=== PATIENT | female | born 1945 | race Caucasian/White ===

== ENCOUNTER → 2017-01-16 | Outpatient (CLI) | payer MEDICARE ==
[~2017-01-16] MED LIST: ASPI325T PO; BACL10TA PO; COLA100C3 PO; ESTR.625 PO; GABA600T PO; IBUP200C PO; MAXZ PO; MAXZTAB PO; PERC10TA27 PO; PRIN20TA2 PO; TYLE325T PO; ZANA4CAP PO
[2017-01-16 14:24] LABS: AUTOMATED NEUTROPHIL # 5.3 TH/MM3 (1.8-7.7); BASOPHIL # 0.1 TH/MM3 (0-0.2); BASOPHIL % 1.2 % (0.0-2.0); EOSINOPHIL # 0.1 TH/MM3 (0-0.4); EOSINOPHIL % 0.9 % (0.0-4.0); HEMATOCRIT 31.9 % (35.0-46.0); HEMO FLAGS DIFF FINAL; LYMPH % 22.1 % (9.0-44.0); LYMPHOCYTE # 1.7 TH/MM3 (1.0-4.8); MEAN CELL VOLUME 95.3 FL (80.0-100.0); MEAN CORPUSCULAR HEMOGLOBIN 31.9 PG (27.0-34.0); MEAN CORPUSCULAR HGB CONC 33.4 % (32.0-36.0); MONO % 7.6 % (0.0-8.0); NEUT % 68.2 % (16.0-70.0); PLATELET COUNT 379 TH/MM3 (150-450); RED BLOOD COUNT 3.34 MIL/MM3 (4.00-5.30); RED CELL DISTRIBUTION WIDTH 12.7 % (11.6-17.2); WHITE BLOOD COUNT 7.7 TH/MM3 (4.0-11.0)
[2017-01-16 14:32] LABS: BACTERIA, URINE MOD /hpf; BLOOD, URINE NEG (NEG); COMMENT (UR) CULTURE INDICATED; CULTURE IF INDICATED CULTURE INDICATED; GLUCOSE,URINE NEG (NEG); HYALINE CAST, URINE 2 /lpf (RARE); KETONE, URINE NEG (NEG); MUCUS URINE MANY /lpf (OCC); NITRITE,URINE NEG (NEG); PH, URINE 5.5 (5.0-8.5); SQUAMOUS EPITHELIAL CELL URINE 38 /hpf (0-5); URINE COLOR YELLOW (YELLW/STRAW)
--- NOTE | 2017-01-17 06:11 | EKG ---
Date Performed: 01/16/2017 Time Performed: 13:19:00 PTAGE: 71 years EKG: Sinus rhythm WITH OCCASIONAL VENTRICULAR PREMATURE COMPLEXES INCOMPLETE RIGHT BUNDLE BRANCH BLOCK BORDERLINE ECG Compared to prior tracing no significant change DOCTOR: Erickson Alfaro Interpretating Date/Time 01/17/2017 06:10:01
== END ==
LOC: CPRE 12:47
PROVIDERS: ATTEND Pain Medicine Interventional Pain Medicine
DX: Z01.810 Encounter for preprocedural cardiovascular examination (principal); Z01.812 Encounter for preprocedural laboratory examination; M54.5 Low back pain; M54.16 Radiculopathy, lumbar region; R94.31 Abnormal electrocardiogram [ECG] [EKG]; R82.90 Unspecified abnormal findings in urine
CPT/HCPCS: 36415; 81001; 84132; 85025; 87086; 93005

== ENCOUNTER → 2017-01-22 | Day surgery (SDC) | payer MEDICARE ==
[~2017-01-22] VITALS: Ht 170.2 cm; Wt 79.5 kg
[~2017-01-22] MED LIST changes: +*MEPERIDINE 25 MG INJ VIAL PERIprocedural Use ONLY ONE; -BACL10TA PO; +BUPIVACAINE/EPINEPHRINE 0.5% PF 30 ML VIAL ONE; +LACTATED RINGER'S 1000 ML INJ 1,000 ML ONE; +LIDOCAINE 1%/EPINEPHrine 1:100,000 SOLN 30 ML VIAL ONE; -MAXZ PO; +MEPERIDINE HCL 50 MG/ML VIAL ONE; +PROPOFOL 200 MG/20 ML AMP IV ONE; +SODIUM CHLORIDE 0.9% 20 ML VIAL ONE; +SODIUM CHLORIDE 0.9% INJ 100 ML ONE; +ceFAZolin INJ 1,000 MG VIAL ONE
[2017-01-22 10:17] VITALS: BP 194/97; PULSE 86; RESP 20; TEMP 98.2; O2SAT 98
[2017-01-22 12:00] VITALS: TEMP 97.3
[2017-01-22 12:50] VITALS: BP 159/86; PULSE 78; RESP 16; O2SAT 99
--- NOTE | 2017-01-23 21:27 | M6 ---
cc: JOAN SINGH M.D. DATE: 01/22/2017 DATE OF : 1945 PROCEDURE Implantation of [employer] Octrode for spinal cord stimulation. PREPROCEDURE DIAGNOSIS Status post lumbar fusion, failed back syndrome, lumbar radiculopathy and intractable pain. POSTPROCEDURE DIAGNOSIS Status post lumbar fusion, failed back syndrome, lumbar radiculopathy and intractable pain. PROCEDURE NOTE: IV was started in the holding area. The patient was given IV antibiotics, taken to the operating room, placed in the prone position. All pressure points were checked and padded. She was sedated and monitored by anesthesia. Her back was prepped with ChloraPrep and draped with sterile drapes. Fluoroscopy was used to visualize the T12, L1 interlaminar space. The skin was infiltrated with 0.5% Marcaine containing epinephrine. Then a modified Tuohy needle from the [employer] kit was advanced using [id number] technique and fluoroscopic guidance into the epidural space at T12-L1. Then a Medtronics Octrode was advanced into the epidural space until the cephalad tip of the Octrode was at the cephalad border of T8 and the caudal electrodes were at the caudal border of T9, and the lead was on the midline. Then the patient was awakened and stimulation took place at multiple electrode combinations. However, the patient was not feeling the stimulation in the areas of her pain which included the bilateral buttocks, low back and bilateral lower extremity. At this point the lead was removed. The Tuohy needle was removed and the procedure was abandoned. A sterile bandage was placed over the puncture site. The patient was taken to the Recovery Room with stable vital signs, neurologically intact. WMD DA Tadeo/RUDY /11:53 AM /9:23 PM
== END | disposition home or self-care (01) ==
LOC: PHSDC 09:07
PROVIDERS: ATTEND Pain Medicine Interventional Pain Medicine
DX: M54.16 Radiculopathy, lumbar region (principal); G62.9 Polyneuropathy, unspecified; M96.1 Postlaminectomy syndrome, not elsewhere classified; I10 Essential (primary) hypertension; K21.9 Gastro-esophageal reflux disease without esophagitis; Z98.1 Arthrodesis status
CPT/HCPCS: 63650; 76000; C1778; J0690; J2175; J7120

== ENCOUNTER → 2017-02-08 | Day surgery (SDC) | payer MEDICARE ==
[~2017-02-08] MED LIST changes: -*MEPERIDINE 25 MG INJ VIAL PERIprocedural Use ONLY ONE; -BUPIVACAINE/EPINEPHRINE 0.5% PF 30 ML VIAL ONE; +LACTATED RINGER'S 1,000 ML BAG IV ONE; -LACTATED RINGER'S 1000 ML INJ 1,000 ML ONE; -LIDOCAINE 1%/EPINEPHrine 1:100,000 SOLN 30 ML VIAL ONE; +LIDOCAINE HCL 1% 50 ML VIAL ONE; +MIDAZOLAM HCL 2 MG/2 ML VIAL ONE; -SODIUM CHLORIDE 0.9% 20 ML VIAL ONE; -SODIUM CHLORIDE 0.9% INJ 100 ML ONE; +TRIAMCINOLONE ACETONIDE 40 MG/ML VIAL ONE; -ceFAZolin INJ 1,000 MG VIAL ONE
--- NOTE | 2017-02-08 12:41 | TN ---
cc: ARNOLD BUSH M.D. DATE OF OPERATION 02/08/2017 PREOPERATIVE DIAGNOSIS Right painful total knee arthroplasty, knee stiffness. POSTOPERATIVE DIAGNOSIS Right painful total knee arthroplasty, knee stiffness. PROCEDURE Right knee manipulation, fluoroscopic guidance of needle, aspiration right knee under anesthesia. SURGEON Dulce Bush MD ASSESSMENT Staff SPECIMEN 1. Synovial fluid program stain aerobic, anaerobic culture and sensitivity. 2. Synovial fluid right knee, fungal smear and culture. ESTIMATED BLOOD LOSS None COMPLICATIONS None ANESTHESIA TIVA DRAINS None CONDITION Stable PLAN OF ACTIVITY As per orders. PROCEDURE The patient was brought into the operating room and had satisfactory TIVA anesthesia by Dr. Jackson of the Department of Anesthesia. The right lower extremity was prepped and draped in the usual sterile manner. Under fluoroscopic guidance, an 18 gauge spinal needle was introduced into the right knee joint. It aspirated of approximately 2-3 cc of clearish blood-tinged synovial type fluid. This was sent for two separate specimens. The first specimen was sent for Gram stain aerobic, anaerobic culture and sensitivity. The second specimen was sent for fungal smear and culture. A Band-Aid placed over the aspiration site. Manipulation was made of the knee under anesthesia. Flexion was to 115 degrees of flexion. The patient tolerated the procedure well and arrived in the Recovery Room in stable and satisfactory condition. X-RAYS One knee one view AP shows status post right knee manipulation, status post right total knee arthroplasty. No obvious fracture dislocation or subluxation. MD BRADFORD Rodriguez/MIREYA /12:10 PM /12:34 PM
== END | disposition home or self-care (01) ==
LOC: ESDC 09:24
PROVIDERS: ATTEND Orthopaedic Surgery Orthopaedic Surgery of the Spine
DX: M24.661 Ankylosis, right knee (principal)
CPT/HCPCS: 01380; 27570; 73560; 76000; 87070; 87102; 87205; 87206; J2175; J2250; J3010; J7120; J3301

== ENCOUNTER 2017-04-18 10:26 | Inpatient (IN) | payer MEDICARE ==
[~2017-04-18] VITALS: Ht 170.2 cm; Wt 78.0 kg
[~2017-04-18 10:26] MED LIST changes: -AMLO5 PO; -ASPI325T PO; -BEDSIDE COMMODE1 MI1; -CHOL1CAP8 PO; -COLA100C3 PO; -CPMMACHINE; -DOCU100C PO; -LISI40TA PO; -MULT1TAB46 PO; -OXYC-259 PO; -PRIN20TA2 PO; -TYLE325T PO; -WALKER WHEELS/F1 MIS
[2017-04-18] MEDS ORDERED: AMLO5 PO (10:56)
[2017-04-18] MEDS ORDERED: LISI40TA PO (10:56)
[2017-04-18] MEDS ORDERED: OXYC-259 PO (10:58)
[2017-04-18] MEDS ORDERED: DOCU100C PO (10:59)
[2017-04-18] MEDS ORDERED: MULT1TAB46 PO (11:02)
[2017-04-18] MEDS ORDERED: CHOL1CAP8 PO (11:02)
[2017-06-04] MEDS ORDERED: BUPIVACAINE LIPOSOME PF 1.3% 20 ML VIAL ONE (09:24)
[2017-06-04] MEDS ORDERED: LACTATED RINGER'S 1000 ML IV PRN (11:15)
[2017-06-04] MEDS ORDERED: SODIUM CHLORID 0.9% 500 ML IV PRN (11:15)
[2017-06-04] MEDS ORDERED: INSULIN HUMAN REGULAR 1,000 UNITS/10 ML VIAL SQ PRN (11:15)
[2017-06-04] MEDS ORDERED: POVIDONE IODINE 5% (ANTISEPSIS KIT) 4 APPLICATIONS EACH NARE PRN (11:15)
[2017-06-04] MEDS ORDERED: VANCOMYCIN 1000 MG/NS 250 ML (for <70 kg) IV SCH ×2 (11:15)
[2017-06-04] MEDS ORDERED: ceFAZolin 2 GM PREMIX 50 ML IV SCH (11:15)
[2017-06-04] MEDS ORDERED: METOPROLOL TARTRATE 25 MG TAB PO PRN (11:15)
[2017-06-04] MEDS ORDERED: CHLORHEXIDINE GLUCONATE 4% SOLN 120 ML BTL TOPICAL SCH (11:15)
[2017-06-04] MEDS ORDERED: CHLORHEXIDINE GLUCONATE 2 % 1 PACK (2 CLOTHS) TOPICAL PRN (11:15)
[2017-06-04] MEDS ORDERED: GENTAMICIN SULFATE 80 MG/2 ML VIAL ONE (11:47)
[2017-06-04 11:48] LABS: AUTOMATED NEUTROPHIL # 3.8 TH/MM3 (1.8-7.7); BASOPHIL # 0.1 TH/MM3 (0-0.2); BASOPHIL % 1.1 % (0.0-2.0); EOSINOPHIL # 0.1 TH/MM3 (0-0.4); EOSINOPHIL % 0.9 % (0.0-4.0); HEMATOCRIT 31.1 % (35.0-46.0); HEMO FLAGS DIFF FINAL; LYMPH % 28.8 % (9.0-44.0); LYMPHOCYTE # 1.8 TH/MM3 (1.0-4.8); MEAN CORPUSCULAR HEMOGLOBIN 30.9 PG (27.0-34.0); MEAN CORPUSCULAR HGB CONC 31.9 % (32.0-36.0); MONO % 8.1 % (0.0-8.0); NEUT % 61.1 % (16.0-70.0); PLATELET COUNT 263 TH/MM3 (150-450); RED BLOOD COUNT 3.21 MIL/MM3 (4.00-5.30); RED CELL DISTRIBUTION WIDTH 14.5 % (11.6-17.2); WHITE BLOOD COUNT 6.3 TH/MM3 (4.0-11.0)
[2017-06-04] MEDS ORDERED: FAMOTIDINE 20 MG/2 ML VIAL ONE (12:44)
[2017-06-04] MEDS ORDERED: GLYCOPYRROLATE 1 MG/5 ML SYRINGE IV PUSH ONE (12:44)
[2017-06-04] MEDS ORDERED: ACETAMINOPHEN 1000 MG/100 ML 100 ML IV ONE (12:44)
[2017-06-04] MEDS ORDERED: ROCURONIUM INJ 50 MG/5 ML SYRINGE IV PUSH ONE (12:44)
[2017-06-04] MEDS ORDERED: DEXAMETHASONE SOD PHOS 4 MG/ML VIAL IV ONE (12:44)
[2017-06-04] MEDS ORDERED: ePHEDrine/NS 25 MG/5 ML SYR IV ONE (12:44)
[2017-06-04] MEDS ORDERED: ONDANSETRON HCL 4 MG/2 ML VIAL IV PUSH ONE (12:44)
[2017-06-04] MEDS ORDERED: LIDOCAINE HCL 1% PF 5 ML AMPULE OTHER ONE (12:44)
[2017-06-04] MEDS ORDERED: MIDAZOLAM HCL 2 MG/2 ML VIAL IV ONE (12:44)
[2017-06-04] MEDS ORDERED: PROPOFOL 200 MG/20 ML AMP IV ONE (12:44)
[2017-06-04] MEDS ORDERED: NEOSTIGMINE 3 MG/3 ML SYR IV ONE (12:44)
[2017-06-04] MEDS ORDERED: ROPIVACAINE PERI-ARTICULAR INJECTION. P-ARTICULR SCH ×5 (13:00)
[2017-06-04] MEDS ORDERED: ZOLPIDEM TARTRATE 5 MG TAB PO PRN (15:30)
[2017-06-04] MEDS ORDERED: ONDANSETRON HCL 4 MG/2 ML VIAL IVP PRN (15:30)
[2017-06-04] MEDS ORDERED: SODIUM CHLORIDE 0.9% FLUSH 5 ML FLUSH IVF PRN (15:30)
[2017-06-04] MEDS ORDERED: Post-op Orders (for Pharmacy) MISC XX ONE (15:30)
[2017-06-04] MEDS ORDERED: DOCUSATE SODIUM 100 MG CAP PO PRN (15:30)
[2017-06-04] MEDS ORDERED: ALUMINUM/MAGNESIUM/SIMETH 30 ML CUP PO PRN (15:30)
[2017-06-04] MEDS ORDERED: WALKER WHEELS/F1 MIS (15:35)
[2017-06-04] MEDS ORDERED: CPMMACHINE (15:35)
[2017-06-04] MEDS ORDERED: BEDSIDE COMMODE1 MI1 (15:36)
--- NOTE | 2017-06-04 15:39 | HHI.FF ---
Face to Face Verification Diagnosis: (1) Painful total knee replacement Physical Therapy Gait training, Transfer training, bed to chair Knee: Total knee Right LE Weight Bearing: WB as tolerated Left LE Weight Bearing: WB as tolerated Nursing RN: 3 days/week x 2 weeks Nursing: Dressing changes (clean incision with alcohol and apply dry sterile dressing ) Additional Instructions Pt/INR q Sunday and , call/text results to Haylee RUFFIN [phone] Goal INR 1.5-1.8 I have seen patient Annabel Greene on 06/04/17. My clinical findings support the need for the requested home health care services because: Deconditioned w/ increased weakness I certify that my clinical findings support that this patient is homebound because: Post-op weakness Deon Mo MD Jun 04, 2017 15:39
[2017-06-04] MEDS ORDERED: *morphine SULFATE 8 MG/ML PERIprocedure ONLY ONE ×3 (15:43→16:05)
--- NOTE | 2017-06-04 15:45 | HHI.PR ---
Immediate Post Op Note Procedure Date: Jun 04, 2017 Pre Op Diagnosis: R Failed TKR Post Op Diagnosis: Same Surgeon: Deon Mo MD [employer] Tutor(s): Haylee Vela PA-C Procedure: R Rev TKR Complications: None Specimen(s) removed: Synovial Fluid for C/S;Fungal smear culture Estimated blood loss: 25cc Anesthesia: General, Regional Block, Local Drains: Hemovac Tourniquet time (min at mmHg) 25 min @ 250 mmHg Patient to: PACU Patient Condition: Good Implant/Devices: SEE IMPLANT LOG (if applicable) Date/Time of Procedure: SEE SURGICAL CARE RECORD Deon Mo MD Jun 04, 2017 15:45
--- NOTE | 2017-06-04 15:59 | RADRPT ---
EXAM DATE/TIME: 06/04/2017 15:33 [facility] COMPARISON: KNEE RIGHT LTD (1 OR 2 VWS), February 08, 2017, 10:46. INDICATIONS : Post op right knee MEDICAL HISTORY : None. SURGICAL HISTORY : None. ENCOUNTER: Initial ACUITY: 1 day PAIN SCORE: Non-responsive. LOCATION: Right knee FINDINGS: Patient is status post right total arthroplasty. The tibial and femoral components appear well-seated . Skin deana and a surgical drain are noted with soft tissue emphysema present. CONCLUSION: Satisfactory appearance of right knee arthroplasty. Keegan Das MD on June 04, 2017 at 15:57 Board Certified Radiologist. This report was verified electronically.
[2017-06-04] MEDS: LACTATED RINGER'S 1000 ML INJ 1,000 ML IV SCH (16:01)
[2017-06-04] MEDS ORDERED: DO NOT ADM ANY ANTICOAGULANT DRUGS PRN (16:15)
[2017-06-04] MEDS ORDERED: *HYDROmorphone PF 1 MG VIAL PERIprocedural Use ONLY ONE ×2 (16:19→16:57)
[2017-06-04] MEDS: GABAPENTIN 300 MG CAP PO SCH ×2 (18:38→21:50)
[2017-06-04 20:08] VITALS: BP 145/69; PULSE 85; RESP 17; TEMP 95.2; O2SAT 95
[2017-06-04 21:25] VITALS: O2SAT 95
[2017-06-04] MEDS: SODIUM CHLORIDE 0.9% FLUSH 5 ML FLUSH IVF SCH (21:50)
[2017-06-04] MEDS: oxyCODONE/ACETAMINOPHEN 10 MG/325 MG TAB PO PRN (22:02)
[2017-06-04] MEDS: oxyCODONE HCL 10 MG CONTROLLED RELEASE TAB PO SCH (23:10)
[2017-06-05] VITALS: BP 154/78; PULSE 86; RESP 16; TEMP 96.4; O2SAT 96
[2017-06-05] MEDS: LACTATED RINGER'S 1000 ML INJ 1,000 ML IV SCH (03:57)
[2017-06-05 04:00] VITALS: BP 146/69; PULSE 62; RESP 17; TEMP 97.9; O2SAT 95
[2017-06-05] MEDS: oxyCODONE/ACETAMINOPHEN 10 MG/325 MG TAB PO PRN ×2 (04:48→11:49)
[2017-06-05 05:41] LABS: INTERNATIONAL NORMALIZED RATIO 0.9 RATIO; PROTHROMBIN TIME - PATIENT 10.4 SEC (9.8-11.6)
--- NOTE | 2017-06-05 07:18 | PD.ORT.PN ---
Subjective Subjective Remarks POD#1 R Rev TKR No SOB;no chest pain Explained operative findings;answered multiple questions Patient wishes to go home today Objective Vitals Vital Signs Date Time Temp Pulse Resp B/P (MAP) Pulse Ox O2 Delivery O2 Flow Rate FiO2 06/05/17 04:00 97.9 62 17 146/69 (94) 95 06/05/17 00:00 96.4 86 16 154/78 (103) 96 06/04/17 21:25 95 21 06/04/17 20:08 95.2 85 17 145/69 (94) 95 06/04/17 17:30 97.8 84 18 155/71 (99) 100 Room Air 06/04/17 17:15 90 17 165/72 (103) 100 Nasal Cannula 2 06/04/17 17:00 82 17 146/72 (96) 100 Nasal Cannula 2 06/04/17 16:45 77 12 148/70 (96) 100 Nasal Cannula 2 06/04/17 16:30 76 12 149/71 (97) 100 Nasal Cannula 2 06/04/17 16:15 82 22 154/72 (99) 100 Nasal Cannula 2 06/04/17 16:00 79 16 154/74 (100) 100 Nasal Cannula 2 06/04/17 15:45 82 14 163/74 (103) 99 Nasal Cannula 2 06/04/17 15:39 97.5 84 14 171/75 (107) 99 Nasal Cannula 3 06/04/17 11:53 98.0 82 16 185/81 (115) 98 I/O 06/04/17 06/04/17 06/04/17 06/05/17 06/05/17 06/05/17 07:00 15:00 23:00 07:00 15:00 23:00 Intake Total 250 ml 1655 ml 480 ml Output Total 1145 ml Balance 250 ml 510 ml 480 ml Intake Oral 240 ml 480 ml IV Total 250 ml 115 ml Other 1300 ml Output Urine Total 1100 ml Drainage Total 20 ml Estimated Blood Loss 25 ml # Voids 0 3 # Bowel Movements 0 0 Result Diagram: 06/04/17 1114 Other Results Laboratory Tests Test 06/05/17 05:15 Prothromb Time International Ratio 0.9 RATIO Prothrombin Time 10.4 SEC (9.8-11.6) Imaging Last 24 hours Impressions Knee X-Ray 06/04/17 1527 Signed Impressions: Service Date/Time: Sunday, June 04, 2017 15:33 - CONCLUSION: Satisfactory appearance of right knee arthroplasty. Keegan Das MD Objective Remarks N/V intact Neg deandre's,no calf tenderness Assessment & Plan Assessment and Plan Ortho stable coumadin ,TEDS,Sequentials for DVT prophylaxsis D/C home today;[facility] nursing,PT Deon Mo MD Jun 05, 2017 07:18
--- NOTE | 2017-06-05 07:42 | MP ---
cc: ARNOLD MO M.D., WILLIAM R. M.D. BUCK, DANNIE E. M.D. DATE OF SURGERY 06/04/2017 PREOPERATIVE DIAGNOSES 1. Right failed total knee arthroplasty, polyethylene tibial wear. 2. Status post right total knee arthroplasty February 16, 2012. 3. Chronic pain syndrome. POSTOPERATIVE DIAGNOSES 1. Right failed total knee arthroplasty, polyethylene tibial wear. 2. Status post right total knee arthroplasty February 16, 2012. 3. Chronic pain syndrome. PROCEDURE Right revisional total knee arthroplasty. SURGEON Roberth Mo MD UNDER PRESSER Haylee Vela PA-C SPECIMEN None. ESTIMATED BLOOD LOSS 25 cc. COMPLICATIONS None. ANESTHESIA General, regional, local. DRAINS Two. TOURNIQUET TIME 25 minutes at 250 mmHg. CONDITION Stable PLAN OF ACTIVITY As per orders. PROCEDURE My neurosurgical physician assistant, Haylee Vela PA-C, was present for the entire surgical case. She was medically necessary for the entire case because of the complexity of the case and to facilitate the performance of the procedure. The ALTERNATIVE FINANCING SPECIALIST at the back table was not of the skill set for this case, to manipulate the instruments e.g. the multiple different soft tissue retractors, removal of the tibial polyethylene component and insertion of the new total knee arthroplasty. The patient was brought into the operating room, had satisfactory general anesthesia followed by regional anesthesia by Dr. Chuy Graf of the Department of Anesthesia. The right lower extremity was prepped and draped in the usual and sterile manner. The extremity was exsanguinated by elevation, the tourniquet inflated to 250 mmHg. The anterior scar tissue was surgically excised. Paramedian capsulotomy was performed. The patient was found to have inflammatory tissue wear debris within the knee itself. Culture was taken and sent for aerobic and anaerobic culture and sensitivities and also for fungal smear and culture. Debridement and complete synovectomy was performed involving the knee joint itself. Using the CrossLoopard total knee arthroplasty system the clipping mechanism for the tibial component was removed. The patient was found to have significant polyethylene wear and failure involving medially and laterally and more posteriorly. This was removed. The knee was then irrigated with 4000 cc of sterile saline antibiotic solution using Water Pik irrigation system. A 12 lipped tibial component, 75 mm was then assembled onto the tibial tray with appropriate clipping mechanism. The patient was found to have very satisfactory range of motion approximately 115 to 20 degrees, no extensor lag and the patient was found to have excellent stability in both the sagittal plane and the coronal plane. The wound was then injected with local anesthesia provided by the Department of Pharmacy. The tourniquet was deflated. All bleeders were coagulated. The wound itself was dry. It was closed over two Hemovac drains hooked up to an Autovac type system. The extensor mechanism and capsule was repaired using multiple interrupted #2 Tycron suture. Subcutaneous layers closed with 0 Vicryl 2-0 Vicryl, the skin approximated with skin deana. Sterile dressing applied. The patient tolerated the procedure well and went to the recovery room in stable and satisfactory condition. MD BRADFORD oRdriguez/SSB /3:19 PM /7:27 AM
[2017-06-05 08:00] VITALS: BP 146/67; PULSE 70; RESP 18; TEMP 96.3; O2SAT 98
[2017-06-05] MEDS ORDERED: LISINOPRIL 20 MG TAB PO SCH (09:00)
[2017-06-05] MEDS ORDERED: amLODIPine BESYLATE 5 MG TAB PO SCH (09:00)
[2017-06-05] MEDS ORDERED: ESTROGENS CONJUGATED 0.625 MG TAB PO SCH (09:00)
[2017-06-05] MEDS ORDERED: TRIAMTERENE/HCTZ 37.5 MG/25 MG TAB PO SCH (09:00)
[2017-06-05] MEDS: oxyCODONE HCL 10 MG CONTROLLED RELEASE TAB PO SCH (09:35)
[2017-06-05] MEDS: SODIUM CHLORIDE 0.9% FLUSH 5 ML FLUSH IVF SCH (09:36)
[2017-06-05] MEDS: GABAPENTIN 300 MG CAP PO SCH (09:36)
[2017-06-05] MEDS ORDERED: WARFARIN SOD 7.5 MG TAB PO ONE ×2 (11:30→16:00)
[2017-06-05] MEDS ORDERED: WARFARIN SOD 5 MG TAB PO SCH (16:00)
--- NOTE | 2017-06-11 09:44 | HHI.DS ---
Discharge Summary Admission Date Jun 04, 2017 at 10:41 Discharge Date: Jun 05, 2017 Admitting Diagnosis R painful TKA Diagnosis: (1) Painful total knee replacement Diagnosis: Principal ICD Codes: T84.84XA - Pain due to internal orthopedic prosthetic devices, implants and grafts, initial encounter; Z96.659 - Presence of unspecified artificial knee joint Procedures R rev TKA Brief History This is a 72 year old female patient who presents with the following history. Patient underwent right total knee arthroplasty on 02/16/[address] Deon Mo. Patient began to have right knee pain with swelling earlier this year. Also having difficulty walking. She underwent nuclear bone scan at [facility] on February 02, 2017: Moderate increased uptake patella, minimal to mild uptake proximal tibia, minimal uptake distal femur; mild prominent blood flow and blood pool of the knee capsule. She then underwent on 02/08/17- R knee asp with manipulation where cultures from aspiration showed no growth @ 72 hrs. Also underwent lab work which showed WSR-12(0-40);CRP-8.9(0-4.9). Patient states the knee was interfering with her ADLs and opted to proceed forward with rev surgery. PE at Discharge N/V intact Neg deandre's,no calf tenderness Hospital Course Patient underwent satisfactory anaesthesia by the dept of anaesthesia. She underwent revisional right total knee arthroplasty on the date of admission. She was treated with low dose coumadin night before surgery and will continue with low dose coumadin for four weeks post-operatively. She was started with full weight bearing ambulation, therapy and CPM machine on pod #1. She was also seen and followed by medical team. She had knee high TEDS and sequentials during her stay for DVT prop. She progressed well and was discharged home with [facility] nursing and PT on pod #1 in stable condition. Pt Condition on Discharge: Stable Discharge Disposition: Disch w/ Home Health Serv Discharge Instructions Diet Instructions: Coumadin (Warfarin) Diet Activities You Can Perform: Weight Bearing as Haylee Summers Jun 11, 2017 09:44
== END 2017-06-05 12:21 | disposition home health service (06) | DRG 468 ==
LOC: HSDI 06-04 10:41 → N06A 06-04 17:54
PROVIDERS: ADMIT Orthopaedic Surgery Orthopaedic Surgery of the Spine; ATTEND Orthopaedic Surgery Orthopaedic Surgery of the Spine
PROC: 0SRV0JA Replacement of Right Knee Joint, Tibial Surface with Synthetic Substitute, Uncemented, Open Approach (ICD-10-PCS; 2017-06-04)
PROC: 3E0T3CZ (ICD-10-PCS; 2017-06-04)
PROC: 0SPV0JZ Removal of Synthetic Substitute from Right Knee Joint, Tibial Surface, Open Approach (ICD-10-PCS; principal; 2017-06-04 13:37)
DX: T84.062A Wear of articular bearing surface of internal prosthetic right knee joint, initial encounter (principal); I10 Essential (primary) hypertension; G89.4 Chronic pain syndrome; Y79.2 Prosthetic and other implants, materials and accessory orthopedic devices associated with adverse incidents
CPT/HCPCS: 73560; 85025; 85610; 86850; 86900; 86901; 86920; 87070; 87102; 87205; 87206; C1776; C9290; J0131; J0690; J0735; J1100; J1170; J1580; J1885; J2250; J2270; J2405; J2710; J2795; J3010; J3370; J7050; J7120

== ENCOUNTER → 2017-04-18 | Outpatient (CLI) | payer MEDICARE ==
[~2017-04-18] MED LIST changes: +AMLO5 PO; +BEDSIDE COMMODE1 MI1; +CHOL1CAP8 PO; +CPMMACHINE; +DOCU100C PO; -LACTATED RINGER'S 1,000 ML BAG IV ONE; -LIDOCAINE HCL 1% 50 ML VIAL ONE; +LISI40TA PO; -MEPERIDINE HCL 50 MG/ML VIAL ONE; -MIDAZOLAM HCL 2 MG/2 ML VIAL ONE; +MULT1TAB46 PO; +OXYC-259 PO; -PROPOFOL 200 MG/20 ML AMP IV ONE; -TRIAMCINOLONE ACETONIDE 40 MG/ML VIAL ONE; +WALKER WHEELS/F1 MIS
[2017-04-18 12:18] LABS: BLOOD, URINE NEG (NEG); GLUCOSE,URINE NEG (NEG); HYALINE CAST, URINE 2 /lpf (RARE); KETONE, URINE NEG (NEG); NITRITE,URINE NEG (NEG); URINE COLOR LIGHT-YELLOW (YELLW/STRAW)
[2017-04-18 12:24] LABS: COMMENT (UR) CATH-CULT NOT IND; CULTURE IF INDICATED CATH CULTURE NOT IND
--- NOTE | 2017-04-19 11:29 | EKG ---
Date Performed: 04/18/2017 Time Performed: 11:25:44 PTAGE: 72 years EKG: Sinus rhythm INDETERMINATE AXIS LOW QRS VOLTAGE IN EXTREMITY LEADS BORDERLINE ECG Compared to prior tracing no si gnificant change PREVIOUS TRACING : 01/16/2017 13.19 DOCTOR: Germán Buck Interpretating Date/Time 04/19/2017 11:27:53
== END ==
LOC: CPRE 10:21
PROVIDERS: ATTEND Orthopaedic Surgery Orthopaedic Surgery of the Spine
DX: Z01.810 Encounter for preprocedural cardiovascular examination (principal); Z01.812 Encounter for preprocedural laboratory examination; M17.10 Unilateral primary osteoarthritis, unspecified knee; R94.31 Abnormal electrocardiogram [ECG] [EKG]
CPT/HCPCS: 81001; 93005

== ENCOUNTER → 2017-11-26 | Day surgery (SDC) | payer MEDICARE ==
[~2017-11-26] MED LIST changes: +AMLO5 PO; +BEDSIDE COMMODE1 MI1; +BUPIVACAINE HCL PF 0.5% 30 ML VIAL ONE; +CPMMACHINE; +DOCU100C15 PO; -IBUP200C PO; +LISI40TA PO; +OXYC-103 PO; +PROPOFOL 200 MG/20 ML AMP IV ONE; +TRIAMCINOLONE ACETONIDE 40 MG/ML VIAL I-ARTICULR ONE; +WALKER WHEELS/F1 MIS; +methylPREDNISolone ACETATE 40 MG/ML VIAL I-ARTICULR ONE
--- NOTE | 2017-11-26 09:56 | M6 ---
cc: Krystyna Comer MD 11/26/2017 DATE OF PROCEDURE: 11/26/2017 PROCEDURE PERFORMED: Fluoroscopically-guided injection left sacroiliac joint. History and physical was completed and signed. Consent was signed. Procedure site was marked. Medications were listed and reconciled. Pain score was recorded. Allergies were noted. Time out was taken. Fluoroscopy time was recorded where applicable. Sedation was administered or directed by Dr. Comer. The patient was given oxygen. The patient was monitored by a registered nurse. Total procedure time was greater than 15 minutes. IV was started. Blood pressure cuff, pulse oximeter and EKG were applied. The patient was placed in the prone position on a Jeovany table, sedated with small amounts of Propofol titrated to effect. Vital signs were monitored and remained stable throughout the procedure. The sacral area was prepped with alcohol and 10% Betadine solution and draped with sterile drapes. Fluoroscopy was used and shooting from medial to lateral to clearly visualize the posterior joint line of the left sacroiliac joint, and a sterile 5 inch, 22-gauge spinal needle was advanced into the joint under fluoroscopic guidance. There was negative aspiration for blood or any other type of fluid, and the patient was given 2 mL of 0.5% Marcaine, 20 mg of DepoMedrol, and 20 mg of Kenalog. Following the procedure, the patient was taken to the recovery room with stable vital signs and neurologically intact. Krystyna Comer MD WRM/KD , 09:44 AM , 09:55 AM
== END | disposition home or self-care (01) ==
LOC: PHSDC 08:08
PROVIDERS: ATTEND Pain Medicine Interventional Pain Medicine
DX: M25.552 Pain in left hip (principal)
CPT/HCPCS: 99152; G0260; J1030; J3301; 27096